=== PATIENT | female | born 1950 | race Caucasian/White ===

== ENCOUNTER 2021-03-19 16:01 | Inpatient (IN) | payer MEDICARE, OTHER ==
[2021-03-19] MEDS ORDERED: DEXAMETHASONE SOD PHOSPHATE 10 MG/1 ML VIAL IVPUSH ONE (17:19)
[2021-03-19] MEDS ORDERED: DEXAMETHASONE SOD PHOSPHATE 4 MG/1 ML VIAL ONE (18:40)
[2021-03-19 19:01] LABS: BASO % 0.6 % (0-2.0); EOS % 0.1 % (0-4.5); HEMATOCRIT 40.1 % (32.4-45.2); HEMOGLOBIN 13.4 GM/dL (10.7-15.3); LYMPH % 10.3 % (8-40); MCH 27.9 pg (25.7-33.7); MCHC 33.5 g/dl (32.0-36.0); MEAN CELL VOLUME 83.4 fl (80-96); MEAN PLT VOLUME 9.1 fl (7.5-11.1); MONO % 18.1 % (3.8-10.2); NEUT % 70.9 % (42.8-82.8); PLATELET COUNT 105 10^3/uL (134-434); RBC 4.81 M/mm3 (3.60-5.2); RDW 13.9 % (11.6-15.6); WHITE BLOOD COUNT 5.8 K/mm3 (4.0-10.0)
[2021-03-19 19:24] LABS: BLOOD UREA NITROGEN 15.6 mg/dL (7-18); CALCIUM 9.5 mg/dL (8.5-10.1); MAGNESIUM 2.3 mg/dL (1.8-2.4)
[2021-03-19 19:28] LABS: BILIRUBIN,TOTAL 0.2 mg/dL (0.2-1); CREATININE 1.2 mg/dL (0.55-1.3); TOT PROT 7.6 g/dl (6.4-8.2)
[2021-03-20] MEDS ORDERED: ALBUTEROL SO4 HFA INHALER IH PRN (00:39)
[2021-03-20 02:23] LABS: EPI CELLS >36 /uL (0-25.1); HYALINE CASTS 2 /uL (0-3.1); URINE APPEARANCE TURBID; URINE BACTERIA >9,000 /uL (0-1359); URINE BILIRUBIN NEGATIVE (NEGATIVE); URINE COLOR YELLOW; URINE GLUCOSE (UA) NEGATIVE (NEGATIVE); URINE KETONE NEGATIVE (NEGATIVE); URINE LEUK ESTERASE 3+ (NEGATIVE); URINE NITRITE NEGATIVE (NEGATIVE); URINE PROTEIN 3+ (NEGATIVE); URINE RBC 119 /uL (0-23.9); URINE UROBILINOGEN 0.2 mg/dL (0.2-1.0); URINE WBC 5312 /uL (0-25.8)
[2021-03-20 04:05] VITALS: BMI 30.4
[2021-03-20] MEDS: INSULIN SLIDING SCALE (NOVOLOG) 1 VIAL SQ SCH ×4 (06:26→21:49)
[2021-03-20] MEDS ORDERED: ENOXAPARIN NA (PORCINE) 40 MG/0.4 ML DISP.SYRIN SQ SCH (10:00)
[2021-03-20] MEDS ORDERED: PT OWN MED DRAWER 7, Y5N ONE ×4 (10:07→21:22)
[2021-03-20] MEDS: FAMOTIDINE 20 MG TABLET PO SCH (11:06)
[2021-03-20] MEDS: BENZTROPINE MESYLATE 1 MG TABLET PO SCH ×2 (11:06→21:51)
[2021-03-20] MEDS: risperiDONE 1 MG TABLET PO SCH ×2 (11:07→21:51)
[2021-03-20 11:14] LABS: HEMATOCRIT 40.7 % (32.4-45.2); HEMOGLOBIN 13.5 GM/dL (10.7-15.3); LYMPH % 18.9 % (8-40); MCH 27.9 pg (25.7-33.7); MCHC 33.2 g/dl (32.0-36.0); MEAN CELL VOLUME 84.1 fl (80-96); MEAN PLT VOLUME 9.2 fl (7.5-11.1); MONO % 16.4 % (3.8-10.2); NEUT % 64.3 % (42.8-82.8); PLATELET COUNT 119 10^3/uL (134-434); RBC 4.84 M/mm3 (3.60-5.2); RDW 13.9 % (11.6-15.6)
[2021-03-20 11:15] LABS: BASO % 0.4 % (0-2.0)
[2021-03-20 11:31] LABS: CALCIUM 9.5 mg/dL (8.5-10.1); MAGNESIUM 2.4 mg/dL (1.8-2.4)
[2021-03-20 11:35] LABS: CREATININE 1.3 mg/dL (0.55-1.3); PHOSPHOROUS 4.7 mg/dL (2.5-4.9)
[2021-03-20] MEDS: DEXAMETHASONE SOD PHOSPHATE 10 MG/1 ML VIAL IVPUSH SCH (12:08)
[2021-03-20] MEDS: ENALAPRIL MALEATE 5 MG TABLET PO SCH (12:09)
[2021-03-20] MEDS ORDERED: HEPARIN NA (PORCINE) 5,000 UNITS/ML 1ML VIAL SQ SCH (14:00)
[2021-03-20] MEDS ORDERED: CEFTRIAXONE 1 GM in DEXTROSE 5%-WATER - 50 ML IVPB ONE (14:59)
[2021-03-20] MEDS ORDERED: DEXTROSE 5%-WATER - 50 ML IVPB ONE (15:34)
[2021-03-20] MEDS ORDERED: cefTRIAXone SODIUM 1 GM VIAL ONE (15:34)
[2021-03-20] MEDS: ENOXAPARIN NA (PORCINE) 40 MG/0.4 ML DISP.SYRIN SQ SCH (15:37)
[2021-03-20] MEDS ORDERED: REMDESIVIR 200 MG in SODIUM CHLORIDE 250 ML IVPB ONE (17:00)
[2021-03-21] MEDS: INSULIN SLIDING SCALE (NOVOLOG) 1 VIAL SQ SCH ×4 (07:00→21:42)
[2021-03-21] MEDS ORDERED: DEXTROSE 5%-WATER - 50 ML IVPB ONE (10:27)
[2021-03-21] MEDS ORDERED: cefTRIAXone SODIUM 1 GM VIAL ONE (10:27)
[2021-03-21 10:33] LABS: BASO % 0.5 % (0-2.0); EOS % 0.1 % (0-4.5); LYMPH % 29.1 % (8-40); MCH 27.7 pg (25.7-33.7); MCHC 32.5 g/dl (32.0-36.0); MONO % 13.5 % (3.8-10.2); NEUT % 56.8 % (42.8-82.8); PLATELET COUNT 120 10^3/uL (134-434); RBC 5.06 M/mm3 (3.60-5.2); RDW 14.1 % (11.6-15.6); WHITE BLOOD COUNT 5.1 K/mm3 (4.0-10.0)
[2021-03-21] MEDS: CEFTRIAXONE 1 GM in DEXTROSE 5%-WATER - 50 ML IVPB SCH (10:36)
[2021-03-21] MEDS: risperiDONE 1 MG TABLET PO SCH ×2 (10:37→21:42)
[2021-03-21] MEDS: BENZTROPINE MESYLATE 1 MG TABLET PO SCH ×2 (10:37→21:42)
[2021-03-21] MEDS: FAMOTIDINE 20 MG TABLET PO SCH (10:37)
[2021-03-21] MEDS: ENALAPRIL MALEATE 5 MG TABLET PO SCH (10:38)
[2021-03-21] MEDS: ENOXAPARIN NA (PORCINE) 40 MG/0.4 ML DISP.SYRIN SQ SCH (10:49)
[2021-03-21 10:50] LABS: ALBUMIN 3.5 g/dl (3.4-5.0); BLOOD UREA NITROGEN 26.3 mg/dL (7-18); CALCIUM 8.8 mg/dL (8.5-10.1); MAGNESIUM 2.3 mg/dL (1.8-2.4)
[2021-03-21 10:53] LABS: CREATININE 1.5 mg/dL (0.55-1.3); PHOSPHOROUS 3.6 mg/dL (2.5-4.9)
[2021-03-21 10:54] LABS: BILIRUBIN,TOTAL 0.2 mg/dL (0.2-1)
[2021-03-21] MEDS: DEXAMETHASONE SOD PHOSPHATE 10 MG/1 ML VIAL IVPUSH SCH (11:54)
[2021-03-21] MEDS: DEXAMETHASONE SOD PHOSPHATE 4 MG/1 ML VIAL IVPUSH SCH (11:54)
[2021-03-21] MEDS ORDERED: SODIUM CHLORIDE 1,000 ML IV SCH (14:15)
[2021-03-21] MEDS: REMDESIVIR 100 MG in SODIUM CHLORIDE 250 ML IVPB SCH (16:09)
[2021-03-21] MEDS ORDERED: PT OWN MED DRAWER 7, Y5N ONE (20:56)
[2021-03-22] MEDS: INSULIN SLIDING SCALE (NOVOLOG) 1 VIAL SQ SCH ×4 (06:02→21:55)
[2021-03-22] MEDS ORDERED: DEXTROSE 5%-WATER - 50 ML IVPB ONE (09:19)
[2021-03-22] MEDS ORDERED: cefTRIAXone SODIUM 1 GM VIAL ONE (09:19)
[2021-03-22] MEDS ORDERED: PT OWN MED DRAWER 7, Y5N ONE ×2 (09:19→21:29)
[2021-03-22 10:46] LABS: CALCIUM 8.4 mg/dL (8.5-10.1)
[2021-03-22 10:47] LABS: BLOOD UREA NITROGEN 20.8 mg/dL (7-18)
[2021-03-22 10:49] LABS: CREATININE 1.1 mg/dL (0.55-1.3)
[2021-03-22 10:51] LABS: BILIRUBIN,TOTAL 0.3 mg/dL (0.2-1); TOT PROT 6.4 g/dl (6.4-8.2)
[2021-03-22] MEDS: ENOXAPARIN NA (PORCINE) 40 MG/0.4 ML DISP.SYRIN SQ SCH (11:28)
[2021-03-22] MEDS: CEFTRIAXONE 1 GM in DEXTROSE 5%-WATER - 50 ML IVPB SCH (11:28)
[2021-03-22] MEDS: risperiDONE 1 MG TABLET PO SCH ×2 (11:29→21:37)
[2021-03-22] MEDS: BENZTROPINE MESYLATE 1 MG TABLET PO SCH ×2 (11:29→21:37)
[2021-03-22] MEDS: FAMOTIDINE 20 MG TABLET PO SCH (11:29)
[2021-03-22] MEDS: BUDESONIDE/FORMETEROL FUMARATE 80/4.5 mcg INHALER IH SCH ×2 (11:30→21:56)
[2021-03-22] MEDS: DEXAMETHASONE SOD PHOSPHATE 4 MG/1 ML VIAL IVPUSH SCH (11:31)
[2021-03-22] MEDS ORDERED: ACETAMINOPHEN 325 MG TABLET (FP) PO PRN (16:30)
[2021-03-22] MEDS ORDERED: MELATONIN 5 MG TABLETS PO PRN (16:30)
[2021-03-22] MEDS: REMDESIVIR 100 MG in SODIUM CHLORIDE 250 ML IVPB SCH (17:07)
[2021-03-22] MEDS: INSULIN (LEVEMIR) 100 UNITS/ML UNITS SQ SCH (21:56)
[2021-03-23] MEDS: INSULIN SLIDING SCALE (NOVOLOG) 1 VIAL SQ SCH ×4 (06:26→22:34)
[2021-03-23] MEDS ORDERED: PT OWN MED DRAWER 7, Y5N ONE ×3 (10:35→22:11)
[2021-03-23] MEDS: ENALAPRIL MALEATE 5 MG TABLET PO SCH (10:43)
[2021-03-23] MEDS: DEXAMETHASONE SOD PHOSPHATE 4 MG/1 ML VIAL IVPUSH SCH (10:43)
[2021-03-23] MEDS: risperiDONE 1 MG TABLET PO SCH ×2 (10:43→22:33)
[2021-03-23] MEDS: BENZTROPINE MESYLATE 1 MG TABLET PO SCH ×2 (10:43→22:33)
[2021-03-23] MEDS: FAMOTIDINE 20 MG TABLET PO SCH (10:43)
[2021-03-23] MEDS: ENOXAPARIN NA (PORCINE) 40 MG/0.4 ML DISP.SYRIN SQ SCH (11:35)
[2021-03-23] MEDS: BUDESONIDE/FORMETEROL FUMARATE 80/4.5 mcg INHALER IH SCH ×2 (11:57→22:34)
[2021-03-23 12:07] LABS: HEMATOCRIT 41.6 % (32.4-45.2); HEMOGLOBIN 13.8 GM/dL (10.7-15.3); MCH 28.1 pg (25.7-33.7); MCHC 33.2 g/dl (32.0-36.0); MEAN CELL VOLUME 84.6 fl (80-96); MEAN PLT VOLUME 8.7 fl (7.5-11.1); PLATELET COUNT 110 10^3/uL (134-434); RBC 4.92 M/mm3 (3.60-5.2); RDW 13.8 % (11.6-15.6); WHITE BLOOD COUNT 5.9 K/mm3 (4.0-10.0)
[2021-03-23 12:41] LABS: CALCIUM 8.5 mg/dL (8.5-10.1)
[2021-03-23 12:42] LABS: ALBUMIN 3.4 g/dl (3.4-5.0)
[2021-03-23 12:45] LABS: CREATININE 1.1 mg/dL (0.55-1.3)
[2021-03-23 12:46] LABS: BILIRUBIN,TOTAL 0.2 mg/dL (0.2-1)
[2021-03-23 12:47] LABS: ERYTHROCYTE SEDIMENTATION RATE 12 mm/hr (0-30)
[2021-03-23] MEDS: REMDESIVIR 100 MG in SODIUM CHLORIDE 250 ML IVPB SCH (16:02)
[2021-03-23] MEDS: INSULIN (LEVEMIR) 100 UNITS/ML UNITS SQ SCH (22:34)
[2021-03-24] MEDS: INSULIN SLIDING SCALE (NOVOLOG) 1 VIAL SQ SCH ×3 (06:25→16:23)
[2021-03-24] MEDS ORDERED: PT OWN MED DRAWER 7, Y5N ONE (10:43)
[2021-03-24] MEDS: FAMOTIDINE 20 MG TABLET PO SCH (11:04)
[2021-03-24] MEDS: DEXAMETHASONE SOD PHOSPHATE 4 MG/1 ML VIAL IVPUSH SCH (11:04)
[2021-03-24] MEDS: ENALAPRIL MALEATE 5 MG TABLET PO SCH (11:05)
[2021-03-24] MEDS: risperiDONE 1 MG TABLET PO SCH (11:05)
[2021-03-24] MEDS: ENOXAPARIN NA (PORCINE) 40 MG/0.4 ML DISP.SYRIN SQ SCH (11:09)
[2021-03-24] MEDS: BENZTROPINE MESYLATE 1 MG TABLET PO SCH (11:09)
[2021-03-24] MEDS: BUDESONIDE/FORMETEROL FUMARATE 80/4.5 mcg INHALER IH SCH (11:20)
[2021-03-24 14:05] VITALS: BP 138/90; PULSE 100; TEMP 97.7
[2021-03-24] MEDS: REMDESIVIR 100 MG in SODIUM CHLORIDE 250 ML IVPB SCH (16:08)
== END 2021-03-24 19:03 | disposition home health service (06) | DRG 177 ==
LOC: JER 16:01 → JERBED 20:16 → J5S 03-20 03:24
PROVIDERS: ADMIT Internal Medicine; ATTEND Internal Medicine
DX: U07.1 COVID-19 (principal); J12.82 Pneumonia due to coronavirus disease 2019; N39.0 Urinary tract infection, site not specified; N17.9 Acute kidney failure, unspecified; J45.909 Unspecified asthma, uncomplicated; F41.9 Anxiety disorder, unspecified; E11.21 Type 2 diabetes mellitus with diabetic nephropathy; B96.1 Klebsiella pneumoniae [K. pneumoniae] as the cause of diseases classified elsewhere; J32.0 Chronic maxillary sinusitis
CPT/HCPCS: 36415; 71045-TC-FY; 80048; 80053; 81003; 82570; 82728; 82962; 83036; 83615; 83735; 84100; 84156; 85025; 85027; 85379; 85651; 86140; 87086; 87186; 87804; 93005; 93010; 94761; 97116-GP; 97161-GP; 99285-25; C9399; C9803; J1100; J2794; U0003; U0005

== ENCOUNTER 2022-08-25 11:21 | Inpatient (IN) | payer MEDICARE, OTHER ==
[2022-08-25] MEDS ORDERED: LACTATED RINGERS SOLUTION 1,000 ML/1,000 ML INFUS.BAG IV STA (12:05)
[2022-08-25] MEDS ORDERED: ACETAMINOPHEN 1000 MG/100 ML BAG IVPB ONE (12:06)
[2022-08-25] MEDS ORDERED: ONDANSETRON 4 MG/2 ML VIAL IVPUSH ONE (12:06)
[2022-08-25] MEDS ORDERED: ONDANSETRON 4 MG/2 ML VIAL ONE (12:22)
[2022-08-25] MEDS ORDERED: ACETAMINOPHEN INJECTION 100 ML IVPB ONE (12:22)
[2022-08-25 12:32] LABS: BASO % 0.5 % (0-2.0); EOS % 0.6 % (0-4.5); HEMATOCRIT 41.8 % (32.4-45.2); HEMOGLOBIN 13.8 GM/dL (10.7-15.3); LYMPH % 10.5 % (8-40); MCH 27.3 pg (25.7-33.7); MCHC 32.9 g/dl (32.0-36.0); MEAN PLT VOLUME 9.5 fl (7.5-11.1); MONO % 6.2 % (3.8-10.2); NEUT % 82.2 % (42.8-82.8); PLATELET COUNT 214 10^3/uL (134-434); RBC 5.04 M/mm3 (3.60-5.2); RDW 14.4 % (11.6-15.6); WHITE BLOOD COUNT 14.5 K/mm3 (4.0-10.0)
[2022-08-25 12:36] LABS: INR 1.06 (0.83-1.09); PROTHROMBIN TIME (PATIENT) 12.3 SEC (9.7-13.0)
[2022-08-25 13:01] LABS: POTASSIUM 4.3 mmol/L (3.5-5.1)
[2022-08-25 13:02] LABS: ALBUMIN 3.8 g/dl (3.4-5.0); CALCIUM 9.6 mg/dL (8.5-10.1)
[2022-08-25 13:03] LABS: BLOOD UREA NITROGEN 11.9 mg/dL (7-18)
[2022-08-25 13:06] LABS: CREATININE 1.3 mg/dL (0.55-1.3)
[2022-08-25 13:07] LABS: BILIRUBIN,TOTAL 0.4 mg/dL (0.2-1); TOT PROT 7.3 g/dl (6.4-8.2)
[2022-08-25 14:51] LABS: EPI CELLS >36 /uL (0-25.1); HYALINE CASTS 0 /uL (0-3.1); PH,URINE 7.5 (5.0-8.0); URINE APPEARANCE CLOUDY; URINE BACTERIA 428 /uL (0-1359); URINE BILIRUBIN NEGATIVE (NEGATIVE); URINE COLOR YELLOW; URINE GLUCOSE (UA) NEGATIVE (NEGATIVE); URINE KETONE NEGATIVE (NEGATIVE); URINE LEUK ESTERASE 3+ (NEGATIVE); URINE NITRITE NEGATIVE (NEGATIVE); URINE PROTEIN 1+ (NEGATIVE); URINE RBC 12 /uL (0-23.9); URINE UROBILINOGEN 0.2 mg/dL (0.2-1.0); URINE WBC 1091 /uL (0-25.8)
[2022-08-25] MEDS ORDERED: CEFTRIAXONE 1,000 MG in DEXTROSE 5%-WATER - 50 ML IVPB ONE (15:37)
[2022-08-25] MEDS ORDERED: CEFTRIAXONE 1 GM/50 ML BAG ONE (16:51)
[2022-08-25] MEDS ORDERED: LACTATED RINGERS SOLUTION 1,000 ML/1,000 ML INFUS.BAG IV SCH (20:30)
[2022-08-25] MEDS: ACETAMINOPHEN 1000 MG/100 ML BAG IVPB PRN (23:39)
[2022-08-26] MEDS: ENOXAPARIN NA (PORCINE) 40 MG/0.4 ML DISP.SYRIN SQ SCH (10:05)
[2022-08-26] MEDS: CEFTRIAXONE 1 GM in DEXTROSE 5%-WATER - 50 ML IVPB SCH (10:05)
[2022-08-26 10:42] LABS: HEMATOCRIT 39.8 % (32.4-45.2); HEMOGLOBIN 13.2 GM/dL (10.7-15.3); MCH 27.4 pg (25.7-33.7); MCHC 33.1 g/dl (32.0-36.0); MEAN CELL VOLUME 82.9 fl (80-96); MEAN PLT VOLUME 9.2 fl (7.5-11.1); PLATELET COUNT 191 10^3/uL (134-434); RDW 14.3 % (11.6-15.6); WHITE BLOOD COUNT 12.9 K/mm3 (4.0-10.0)
[2022-08-26 11:02] LABS: POTASSIUM 4.1 mmol/L (3.5-5.1)
[2022-08-26 11:04] LABS: ALBUMIN 3.2 g/dl (3.4-5.0); BLOOD UREA NITROGEN 9.7 mg/dL (7-18); CALCIUM 9.1 mg/dL (8.5-10.1); MAGNESIUM 1.9 mg/dL (1.8-2.4)
[2022-08-26 11:08] LABS: CREATININE 1.1 mg/dL (0.55-1.3); PHOSPHOROUS 4.2 mg/dL (2.5-4.9)
[2022-08-26 11:10] LABS: BILIRUBIN,TOTAL 0.4 mg/dL (0.2-1); TOT PROT 6.3 g/dl (6.4-8.2)
[2022-08-26] MEDS: PANTOPRAZOLE SODIUM 40 MG VIAL IVPUSH SCH (12:13)
[2022-08-26] MEDS: ACETAMINOPHEN 1000 MG/100 ML BAG IVPB PRN ×2 (12:14→20:42)
[2022-08-26 16:19] VITALS: BMI 31.5
[2022-08-27] MEDS: CEFTRIAXONE 1 GM in DEXTROSE 5%-WATER - 50 ML IVPB SCH (09:09)
[2022-08-27] MEDS: PANTOPRAZOLE SODIUM 40 MG VIAL IVPUSH SCH (09:09)
[2022-08-27] MEDS: ENOXAPARIN NA (PORCINE) 40 MG/0.4 ML DISP.SYRIN SQ SCH (09:09)
[2022-08-27] MEDS ORDERED: POLYETHYLENE GLYCOL 3350 255 GM BTL PO ONE (11:00)
[2022-08-27 11:10] LABS: BASO % 0.4 % (0-2.0); EOS % 4.7 % (0-4.5); HEMATOCRIT 41.3 % (32.4-45.2); HEMOGLOBIN 13.5 GM/dL (10.7-15.3); MCH 27.2 pg (25.7-33.7); MCHC 32.7 g/dl (32.0-36.0); MEAN CELL VOLUME 83.2 fl (80-96); MEAN PLT VOLUME 9.1 fl (7.5-11.1); MONO % 6.8 % (3.8-10.2); NEUT % 80.1 % (42.8-82.8); PLATELET COUNT 191 10^3/uL (134-434); RBC 4.97 M/mm3 (3.60-5.2); RDW 14.3 % (11.6-15.6)
[2022-08-27 11:26] LABS: ALBUMIN 3.2 g/dl (3.4-5.0); CALCIUM 9.1 mg/dL (8.5-10.1)
[2022-08-27 11:27] LABS: BLOOD UREA NITROGEN 8.5 mg/dL (7-18)
[2022-08-27 11:29] LABS: PHOSPHOROUS 3.6 mg/dL (2.5-4.9)
[2022-08-27 11:30] LABS: CREATININE 1.1 mg/dL (0.55-1.3)
[2022-08-27 11:31] LABS: BILIRUBIN,TOTAL 0.3 mg/dL (0.2-1); TOT PROT 6.4 g/dl (6.4-8.2)
[2022-08-27] MEDS: DEXTROSE 5%-LACTATED RINGERS 1,000 ML IV SCH (16:39)
[2022-08-28] MEDS: DEXTROSE 5%-LACTATED RINGERS 1,000 ML IV SCH ×2 (06:13→16:15)
[2022-08-28] MEDS: ENOXAPARIN NA (PORCINE) 40 MG/0.4 ML DISP.SYRIN SQ SCH (10:56)
[2022-08-28] MEDS: PANTOPRAZOLE SODIUM 40 MG VIAL IVPUSH SCH (10:56)
[2022-08-28] MEDS: CEFTRIAXONE 1 GM in DEXTROSE 5%-WATER - 50 ML IVPB SCH (11:12)
[2022-08-28] MEDS ORDERED: TRIMETHOBENZAMIDE HCL 200MG/2ML INJ IM ONE (18:26)
[2022-08-29] MEDS: DEXTROSE 5%-LACTATED RINGERS 1,000 ML IV SCH (00:36)
[2022-08-29] MEDS: PANTOPRAZOLE SODIUM 40 MG VIAL IVPUSH SCH (09:55)
[2022-08-29] MEDS: CEFTRIAXONE 1 GM in DEXTROSE 5%-WATER - 50 ML IVPB SCH (09:55)
[2022-08-29] MEDS: ENOXAPARIN NA (PORCINE) 40 MG/0.4 ML DISP.SYRIN SQ SCH (09:55)
[2022-08-29] MEDS ORDERED: LIDOCAINE HCL/PF 2% SDV 5ML VIAL ONE (13:15)
[2022-08-29] MEDS ORDERED: MIDAZOLAM HCL 2 MG/2 ML SINGLE DOSE VIAL ONE (13:15)
[2022-08-29] MEDS ORDERED: SUCCINYLCHOLINE CHLORIDE 200 MG/10 ML SYRINGE ONE (13:15)
[2022-08-29] MEDS ORDERED: ROCURONIUM BROMIDE 50 MG/5 ML SYRINGE ONE (13:15)
[2022-08-29] MEDS ORDERED: PROPOFOL 20 ML ONE (13:15)
[2022-08-29] MEDS ORDERED: BUPIVACAINE HCL/PF 0.25% (2.5MG/ML) 10 ML VIAL ONE (14:11)
[2022-08-29] MEDS ORDERED: DEXAMETHASONE SOD PHOSPHATE 4 MG/1 ML VIAL ONE (14:16)
[2022-08-29] MEDS ORDERED: BUPIVACAINE HCL/PF 0.25% (2.5MG/ML) 10 ML VIAL IJ ONE (14:25)
[2022-08-29] MEDS ORDERED: NEOSTIGMINE METHYLSULFATE 0.5 MG/1 ML - 10 ML MDV ONE (14:47)
[2022-08-29] MEDS ORDERED: GLYCOPYRROLATE 0.2 MG/1 ML VIAL ONE (14:47)
[2022-08-29] MEDS ORDERED: PROMETHAZINE HCL 25 MG/1 ML VIAL IVPB PRN (15:17)
[2022-08-29] MEDS ORDERED: ONDANSETRON 4 MG/2 ML VIAL IVPUSH PRN (15:17)
[2022-08-29] MEDS: ACETAMINOPHEN 1000 MG/100 ML BAG IVPB SCH ×2 (15:18→23:40)
[2022-08-29] MEDS ORDERED: oxyCODONE HCL 5 MG TABLET PO PRN (15:20)
[2022-08-29] MEDS ORDERED: ACETAMINOPHEN INJECTION 100 ML IVPB ONE (15:24)
[2022-08-29] MEDS ORDERED: hydrALAZINE HCL 20 MG/ML VIAL ONE (15:27)
[2022-08-29] MEDS ORDERED: hydrALAZINE HCL 20 MG/ML VIAL IVPUSH ONE (15:28)
[2022-08-29] MEDS ORDERED: LACTATED RINGERS SOLUTION 1,000 ML/1,000 ML INFUS.BAG IV SCH (15:30)
[2022-08-29] MEDS: LACTATED RINGERS SOLUTION 1,000 ML IV SCH ×2 (17:10→17:13)
[2022-08-30] MEDS ORDERED: TRIMETHOBENZAMIDE HCL 200MG/2ML INJ IM PRN ×2 (02:56→20:47)
[2022-08-30] MEDS: LACTATED RINGERS SOLUTION 1,000 ML IV SCH ×3 (05:54→17:51)
[2022-08-30] MEDS ORDERED: ACETAMINOPHEN 500 MG TABLET (FP) PO PRN (08:00)
[2022-08-30] MEDS: ENOXAPARIN NA (PORCINE) 40 MG/0.4 ML DISP.SYRIN SQ SCH (11:07)
[2022-08-30] MEDS: ONDANSETRON 4 MG/2 ML VIAL IVPUSH PRN ×3 (11:07→23:41)
[2022-08-30] MEDS: PANTOPRAZOLE SODIUM 40 MG VIAL IVPUSH SCH (11:09)
[2022-08-30] MEDS: CEFTRIAXONE 1 GM in DEXTROSE 5%-WATER - 50 ML IVPB SCH (11:10)
[2022-08-30 11:43] LABS: BASO % 0.1 % (0-2.0); HEMATOCRIT 40.1 % (32.4-45.2); HEMOGLOBIN 13.2 GM/dL (10.7-15.3); LYMPH % 7.9 % (8-40); MCH 27.4 pg (25.7-33.7); MEAN CELL VOLUME 82.9 fl (80-96); MEAN PLT VOLUME 8.8 fl (7.5-11.1); MONO % 8.1 % (3.8-10.2); NEUT % 80.9 % (42.8-82.8); PLATELET COUNT 236 10^3/uL (134-434); RBC 4.83 M/mm3 (3.60-5.2); RDW 14.5 % (11.6-15.6); WHITE BLOOD COUNT 12.7 K/mm3 (4.0-10.0)
[2022-08-30 12:31] LABS: CALCIUM 9.4 mg/dL (8.5-10.1); POTASSIUM 3.4 mmol/L (3.5-5.1)
[2022-08-30 12:32] LABS: BLOOD UREA NITROGEN 10.3 mg/dL (7-18); MAGNESIUM 1.9 mg/dL (1.8-2.4)
[2022-08-30 12:35] LABS: CREATININE 1.2 mg/dL (0.55-1.3); PHOSPHOROUS 2.7 mg/dL (2.5-4.9)
[2022-08-30] MEDS ORDERED: POTASSIUM CHLORIDE ORAL LIQUID 20 MEQ/15 ML PO ONE (14:30)
[2022-08-30] MEDS: KCL 10 MEQ IVPB 10 MEQ/100 ML INFUS.BAG IVPB SCH ×2 (15:15→16:39)
[2022-08-30] MEDS ORDERED: METOCLOPRAMIDE HCL INJECTION 10 MG/2 ML VIAL IVPUSH ONE (20:50)
[2022-08-31] MEDS: ONDANSETRON 4 MG/2 ML VIAL IVPUSH PRN (07:37)
[2022-08-31] MEDS: ENOXAPARIN NA (PORCINE) 40 MG/0.4 ML DISP.SYRIN SQ SCH (10:10)
[2022-08-31] MEDS: CEFTRIAXONE 1 GM in DEXTROSE 5%-WATER - 50 ML IVPB SCH (10:10)
[2022-08-31] MEDS: PANTOPRAZOLE SODIUM 40 MG VIAL IVPUSH SCH (10:10)
[2022-08-31] MEDS: LACTATED RINGERS SOLUTION 1,000 ML IV SCH (13:04)
[2022-08-31 15:22] LABS: BASO % 0.3 % (0-2.0); EOS % 3.5 % (0-4.5); HEMATOCRIT 40.3 % (32.4-45.2); HEMOGLOBIN 13.2 GM/dL (10.7-15.3); LYMPH % 12.8 % (8-40); MCH 27.1 pg (25.7-33.7); MCHC 32.6 g/dl (32.0-36.0); MEAN PLT VOLUME 8.6 fl (7.5-11.1); MONO % 8.4 % (3.8-10.2); PLATELET COUNT 260 10^3/uL (134-434); RBC 4.86 M/mm3 (3.60-5.2); RDW 14.3 % (11.6-15.6); WHITE BLOOD COUNT 14.3 K/mm3 (4.0-10.0)
[2022-08-31 15:48] LABS: POTASSIUM 3.6 mmol/L (3.5-5.1)
[2022-08-31 15:54] LABS: BLOOD UREA NITROGEN 7.7 mg/dL (7-18); CALCIUM 9.1 mg/dL (8.5-10.1)
[2022-08-31 15:55] LABS: ALBUMIN 3.3 g/dl (3.4-5.0); MAGNESIUM 1.9 mg/dL (1.8-2.4)
[2022-08-31 15:57] LABS: PHOSPHOROUS 2.8 mg/dL (2.5-4.9)
[2022-08-31 15:58] LABS: TOT PROT 6.5 g/dl (6.4-8.2)
[2022-08-31 16:00] LABS: BILIRUBIN,TOTAL 0.3 mg/dL (0.2-1)
[2022-08-31] MEDS ORDERED: hydrALAZINE HCL 20 MG/ML VIAL IVPB PRN (16:03)
[2022-09-01] MEDS: ENOXAPARIN NA (PORCINE) 40 MG/0.4 ML DISP.SYRIN SQ SCH (09:16)
[2022-09-01] MEDS: CEFTRIAXONE 1 GM in DEXTROSE 5%-WATER - 50 ML IVPB SCH (09:16)
[2022-09-01] MEDS: DEXTROSE 5%-0.45% SALINE 1,000 ML IV SCH (09:22)
[2022-09-01 09:28] LABS: BASO % 0.2 % (0-2.0); EOS % 5.2 % (0-4.5); HEMOGLOBIN 12.3 GM/dL (10.7-15.3); LYMPH % 11.6 % (8-40); MCH 27.2 pg (25.7-33.7); MCHC 33.2 g/dl (32.0-36.0); MEAN CELL VOLUME 82.1 fl (80-96); MEAN PLT VOLUME 8.6 fl (7.5-11.1); MONO % 8.8 % (3.8-10.2); NEUT % 74.2 % (42.8-82.8); PLATELET COUNT 210 10^3/uL (134-434); RBC 4.51 M/mm3 (3.60-5.2); RDW 14.1 % (11.6-15.6); WHITE BLOOD COUNT 11.2 K/mm3 (4.0-10.0)
[2022-09-01 09:48] LABS: POTASSIUM 3.4 mmol/L (3.5-5.1)
[2022-09-01 09:57] LABS: ALBUMIN 2.8 g/dl (3.4-5.0); BLOOD UREA NITROGEN 7.4 mg/dL (7-18); MAGNESIUM 1.9 mg/dL (1.8-2.4)
[2022-09-01 09:58] LABS: CALCIUM 8.5 mg/dL (8.5-10.1)
[2022-09-01 10:00] LABS: CREATININE 0.9 mg/dL (0.55-1.3); PHOSPHOROUS 2.6 mg/dL (2.5-4.9)
[2022-09-01 10:01] LABS: BILIRUBIN,TOTAL 0.6 mg/dL (0.2-1); TOT PROT 5.6 g/dl (6.4-8.2)
[2022-09-01] MEDS: PANTOPRAZOLE SODIUM 40 MG VIAL IVPUSH SCH (11:13)
[2022-09-01] MEDS: KCL 10 MEQ IVPB 10 MEQ/100 ML INFUS.BAG IVPB SCH ×2 (11:40→13:23)
[2022-09-02] MEDS: DEXTROSE 5%-0.45% SALINE 1,000 ML IV SCH ×2 (01:57→14:25)
[2022-09-02] MEDS: PANTOPRAZOLE SODIUM 40 MG VIAL IVPUSH SCH (10:10)
[2022-09-02] MEDS: ENOXAPARIN NA (PORCINE) 40 MG/0.4 ML DISP.SYRIN SQ SCH (10:10)
[2022-09-02] MEDS: CEFTRIAXONE 1 GM in DEXTROSE 5%-WATER - 50 ML IVPB SCH (10:10)
[2022-09-02 10:29] LABS: BASO % 0.3 % (0-2.0); EOS % 4.9 % (0-4.5); HEMATOCRIT 40.9 % (32.4-45.2); HEMOGLOBIN 13.5 GM/dL (10.7-15.3); LYMPH % 13.3 % (8-40); MCH 27.3 pg (25.7-33.7); MEAN CELL VOLUME 82.7 fl (80-96); MEAN PLT VOLUME 8.7 fl (7.5-11.1); MONO % 8.3 % (3.8-10.2); NEUT % 73.2 % (42.8-82.8); PLATELET COUNT 234 10^3/uL (134-434); RBC 4.95 M/mm3 (3.60-5.2); WHITE BLOOD COUNT 11.8 K/mm3 (4.0-10.0)
[2022-09-02 10:36] LABS: POTASSIUM 3.6 mmol/L (3.5-5.1)
[2022-09-02 10:39] LABS: ALBUMIN 3.3 g/dl (3.4-5.0); BLOOD UREA NITROGEN 6.3 mg/dL (7-18)
[2022-09-02 10:42] LABS: CREATININE 0.9 mg/dL (0.55-1.3); PHOSPHOROUS 2.6 mg/dL (2.5-4.9)
[2022-09-02 10:44] LABS: BILIRUBIN,TOTAL 0.5 mg/dL (0.2-1); TOT PROT 6.4 g/dl (6.4-8.2)
[2022-09-02] MEDS: D5-1/2NS+40 MEQ KCL - 40 MEQ/1,000 ML INFUS.BAG IV SCH (15:10)
[2022-09-02] MEDS: THIAMINE HCL 100 MG TABLET (FP) PO SCH ×2 (16:50→21:57)
[2022-09-02 19:49] LABS: BLOOD UREA NITROGEN 6.2 mg/dL (7-18); CALCIUM 8.7 mg/dL (8.5-10.1); MAGNESIUM 1.8 mg/dL (1.8-2.4); PHOSPHOROUS 2.6 mg/dL (2.5-4.9); POTASSIUM 3.3 mmol/L (3.5-5.1)
[2022-09-02] MEDS ORDERED: risperiDONE 2 MG TABLET PO SCH (22:36)
[2022-09-02] MEDS ORDERED: risperiDONE 1 MG TABLET PO SCH (22:46)
[2022-09-03] MEDS ORDERED: POTASSIUM PHOSPHATE 15 MM in SODIUM CHLORIDE 250 ML IVPB ONE (00:30)
[2022-09-03] MEDS: D5-1/2NS+40 MEQ KCL - 40 MEQ/1,000 ML INFUS.BAG IV SCH ×2 (01:55→12:07)
[2022-09-03 09:47] LABS: BASO % 0.6 % (0-2.0); EOS % 4.1 % (0-4.5); HEMOGLOBIN 13.3 GM/dL (10.7-15.3); LYMPH % 14.5 % (8-40); MCH 27.3 pg (25.7-33.7); MCHC 33.2 g/dl (32.0-36.0); MEAN CELL VOLUME 82.1 fl (80-96); MEAN PLT VOLUME 8.8 fl (7.5-11.1); MONO % 9.7 % (3.8-10.2); NEUT % 71.1 % (42.8-82.8); PLATELET COUNT 260 10^3/uL (134-434); RBC 4.87 M/mm3 (3.60-5.2); RDW 13.9 % (11.6-15.6)
[2022-09-03 10:03] LABS: POTASSIUM 4.1 mmol/L (3.5-5.1)
[2022-09-03 10:07] LABS: ALBUMIN 3.3 g/dl (3.4-5.0); BLOOD UREA NITROGEN 5.1 mg/dL (7-18); CALCIUM 9.1 mg/dL (8.5-10.1)
[2022-09-03 10:08] LABS: MAGNESIUM 2.1 mg/dL (1.8-2.4)
[2022-09-03 10:12] LABS: BILIRUBIN,TOTAL 0.3 mg/dL (0.2-1); TOT PROT 6.2 g/dl (6.4-8.2)
[2022-09-03] MEDS: ENOXAPARIN NA (PORCINE) 40 MG/0.4 ML DISP.SYRIN SQ SCH (11:41)
[2022-09-03] MEDS: CEFTRIAXONE 1 GM in DEXTROSE 5%-WATER - 50 ML IVPB SCH (11:41)
[2022-09-03] MEDS: THIAMINE HCL 100 MG TABLET (FP) PO SCH ×2 (11:42→21:37)
[2022-09-03] MEDS: ENALAPRIL MALEATE 5 MG TABLET PO SCH (11:42)
[2022-09-03] MEDS: PANTOPRAZOLE SODIUM 40 MG VIAL IVPUSH SCH (12:06)
[2022-09-03] MEDS: DEXTROSE IV SCH (20:36)
[2022-09-03] MEDS: [UNRECOGNIZED DRUG - OTHER] IV SCH (20:36)
[2022-09-03] MEDS: POTASSIUM CHLORIDE IV SCH (20:36)
[2022-09-04] MEDS: [UNRECOGNIZED DRUG - OTHER] IV SCH ×2 (04:08→06:42)
[2022-09-04] MEDS: DEXTROSE IV SCH ×2 (04:08→06:42)
[2022-09-04] MEDS: POTASSIUM CHLORIDE IV SCH ×2 (04:08→06:42)
[2022-09-04] MEDS: PANTOPRAZOLE SODIUM 40 MG VIAL IVPUSH SCH (10:41)
[2022-09-04] MEDS: THIAMINE HCL 100 MG TABLET (FP) PO SCH (10:41)
[2022-09-04] MEDS: ENOXAPARIN NA (PORCINE) 40 MG/0.4 ML DISP.SYRIN SQ SCH (10:41)
[2022-09-04] MEDS: CEFTRIAXONE 1 GM in DEXTROSE 5%-WATER - 50 ML IVPB SCH (10:42)
[2022-09-04] MEDS: ENALAPRIL MALEATE 5 MG TABLET PO SCH (10:43)
[2022-09-04 14:35] VITALS: BP 155/73; PULSE 89; RESP 17; TEMP 98.9
== END 2022-09-04 14:57 | disposition home or self-care (01) | DRG 357 ==
LOC: JER 11:21 → JERBED 19:08 → J5S 21:33 → OBSVTOIN 08-27 14:13
PROVIDERS: ADMIT Internal Medicine; ATTEND Internal Medicine
PROC: 0WJG4ZZ Inspection of Peritoneal Cavity, Percutaneous Endoscopic Approach (ICD-10-PCS; principal; 2022-08-29 14:00)
DX: K56.600 Partial intestinal obstruction, unspecified as to cause (principal); E87.1 Hypo-osmolality and hyponatremia; N39.0 Urinary tract infection, site not specified; E03.9 Hypothyroidism, unspecified; E11.65 Type 2 diabetes mellitus with hyperglycemia; J44.9 Chronic obstructive pulmonary disease, unspecified; I10 Essential (primary) hypertension; K76.0 Fatty (change of) liver, not elsewhere classified; E78.5 Hyperlipidemia, unspecified; K21.9 Gastro-esophageal reflux disease without esophagitis; R80.9 Proteinuria, unspecified; E86.0 Dehydration
CPT/HCPCS: 36415; 71045-TC-FY; 74018-TC-FY; 74019-TC-FY; 74177-TC; 76705-TC; 80048; 80053; 81003; 82962; 83605; 83690; 83735; 84100; 84439; 84443; 84484; 85025; 85027; 85610; 86850; 86900; 86901; 87040; 87635; 93005; 93010; 94760; 97116-GP; 97162-GP; 99285-25; G0378; Q9967

== ENCOUNTER 2024-12-09 15:12 | Emergency (ER) | payer MEDICARE, OTHER ==
[2024-12-09 15:27] VITALS: BP 132/84; PULSE 91; RESP 18; TEMP 98.6; BMI 31.8
[2024-12-09] MEDS ORDERED: FAMOTIDINE 20 MG/50 ML IVPB 20 MG/50 ML MG IVPB ONE (17:04)
[2024-12-09 17:11] LABS: ABSOLUTE IMMATURE GRANULOCYTES 0.09 x10^3/uL (0.0-0.031); BASOPHILS # 0.07 x10^3/uL (0.01-0.08); EOSINOPHIL % 3.9 % (0.7-5.8); EOSINOPHILS # 0.39 x10^3/uL (0.04-0.36); MCHC 32.2 g/dl (32.2-35.5); MEAN CELL VOLUME 84.5 fl (79.4-94.8); MEAN PLT VOLUME 10.6 fl (9.4-12.3); MONOCYTE # 0.79 x10^3/uL (0.24-0.86); MONOCYTE % 8.0 % (4.7-12.5); RDW 14.2 % (12.4-16.6)
[2024-12-09 17:48] LABS: GLUCOSE,RANDOM 252.0 mg/dL (74-106); TOT PROT 7.6 g/dl (6.4-8.2)
[2024-12-09 17:49] LABS: CO2 25.0 mmol/L (21-32)
[2024-12-09] MEDS: FAMOTIDINE 20 MG/50 ML IVPB 20 MG/50 ML MG IVPB ONE (17:50)
[2024-12-09 17:51] LABS: ALK PHOS 119.0 U/L (40-150)
[2024-12-09 17:53] LABS: SGOT/AST 19.0 U/L (5-34); SGPT/ALT 13.0 U/L (0-55)
[2024-12-09 18:10] LABS: CREATININE 1.04 mg/dL (0.55-1.3)
== END 2024-12-09 19:44 | disposition home or self-care (01) ==
LOC: JER 15:12
PROC: 3E033GC Introduction of Other Therapeutic Substance into Peripheral Vein, Percutaneous Approach (ICD-10-PCS; principal; 2024-12-09)
PROC: 3E033GC Introduction of Other Therapeutic Substance into Peripheral Vein, Percutaneous Approach (ICD-10-PCS; 2024-12-09)
DX: L29.9 Pruritus, unspecified (principal)
CPT/HCPCS: 36415; 80053; 83735; 85025; 96365; 96375; 99284-25